=== PATIENT | male | born 2000 | race American Indian/Alaskan Native ===

== ENCOUNTER 2021-08-29 19:21 | Emergency (ER) | payer SELFPAY ==
--- NOTE | 2021-08-29 20:00 | Emergency Department Report ---
HPI - General Chief Complaint: Nausea/Vomiting/Diarrhea Time Seen by Provider: 08/29/21 19:46 - HPI HPI: Room 22 The patient is a 21-year-old male present with chief complaint of abdominal pain nausea vomiting. Patient states last night he developed some nausea without vomiting and felt cold even though he was under the covers. The patient states this morning when he awakened he has had intractable nausea vomiting in addition to right-sided abdominal pain. Patient states his abdominal pain has been constant. Patient states he continued to vomit all day including water and Gatorade. Patient admits to an episode of diarrhea. Patient states his last meal prior to symptoms last night consisted of sloppy [employer]. The patient states his girlfriend also ate sloppy Ricki's but was asymptomatic. Patient admits to anorexia stating the food does not taste right so his last meal occurred 21: 00 last night. Patient currently gives his abdominal pain a score 4-5/10 ED Past Medical Hx - Past Medical History Previous Medical History?: No - Surgical History Past Surgical History?: No - Family History Family history: no significant - Social History Smoking Status: Never Smoker Substance Use Type: Marijuana - Medications Home Medications: Home Medications Medication Instructions Recorded Confirmed Last Taken Type Ciprofloxacin HCl 500 mg PO BID #14 08/29/21 Unknown Rx HYDROcodone/APAP 5-325 [Tyner 1 - 2 each PO Q6HR PRN #10 tablet 08/29/21 Unknown Rx 5/325] Promethazine [Phenergan] 25 mg PO Q6HR PRN #20 tab 08/29/21 Unknown Rx Promethazine [Phenergan] 25 mg [place] Q6HR PRN #5 supp.rect 08/29/21 Unknown Rx ED Review of Systems ROS: Stated complaint: NAUSEA/VOMITING/HYPOGLYCEMIA Other details as noted in HPI Constitutional: no symptoms reported Eyes: denies: eye pain ENT: denies: throat pain Respiratory: no symptoms reported Cardiovascular: denies: chest pain Endocrine: no symptoms reported Gastrointestinal: abdominal pain, nausea, vomiting, diarrhea Genitourinary: denies: dysuria Musculoskeletal: denies: back pain Neurological: denies: headache Physical Exam - Physical Exam Vital Signs: Vital Signs 08/29/21 08/29/21 20:59 22:07 Temperature 98.7 F Pulse Rate 66 77 Respiratory 15 15 Rate Blood Pressure 97/77 115/79 [Left] O2 Sat by Pulse 100 99 Oximetry Physical Exam: GENERAL: The patient is well-developed well-nourished male lying on stretcher appearing to be in moderate discomfort. [] HEENT: Normocephalic. Atraumatic. Extraocular motions are intact. Patient has moist mucous membranes. NECK: Supple. Trachea midline CHEST/LUNGS: Clear to auscultation. There is no respiratory distress noted. HEART/CARDIOVASCULAR: Regular. There is no tachycardia. There is no gallop rub or murmur. ABDOMEN: Abdomen is soft, with tenderness to palpation greatest in the right lower quadrant and some tenderness in the suprapubic region. The remainder of the abdomen is soft and nontender to palpation. There is no guarding. Patient has normal bowel sounds. There is no abdominal distention. Positive obturator sign. Negative heel percussion SKIN: There is no rash. There is no edema. There is no diaphoresis. NEURO: The patient is awake, alert, and oriented. The patient is cooperative. The patient has no focal neurologic deficits. The patient has normal speech. GCS 15 MUSCULOSKELETAL: There is no evidence of acute injury. ED Course - Consultations Consultation #1: 08/29/21 21:54 GI paged 08/29/21 22:09 Case discussed with assistant men's lacrosse coach Dr. Jose Farooq- states the patient tolerates p.o. challenge may discharge home with ciprofloxacin 500 mg twice daily x7 days and Flagyl 500 mg 3 times daily x7 days ED Medical Decision Making - Lab Data Result diagrams: 08/29/21 20:17 08/29/21 20:17 Laboratory Tests 08/29/21 08/29/21 20:17 20:17 WBC 8.4 RBC 5.01 Hgb 16.0 H Hct 47.4 H MCV 95 H MCH 32 MCHC 34 RDW 12.9 L Plt Count 172 Lymph % (Auto) 5.4 L Ralls % (Auto) 11.8 H Eos % (Auto) 0.2 Baso % (Auto) 0.1 Lymph # (Auto) 0.5 L Ralls # (Auto) 1.0 H Eos # (Auto) 0.0 Baso # (Auto) 0.0 Seg Neutrophils % 82.5 H Seg Neutrophils # 6.9 Sodium 140 Potassium 3.5 L Chloride 103.0 Carbon Dioxide 23 Anion Gap 18 BUN 10 Creatinine 0.9 Estimated GFR > 60 BUN/Creatinine Ratio 11 Glucose 88 Calcium 9.6 Total Bilirubin 0.70 AST 21 ALT 12 Alkaline Phosphatase 88 Total Protein 7.5 Albumin 4.6 Albumin/Globulin Ratio 1.6 Lipase 10 L - Radiology Data Radiology results: report reviewed (CT abdomen pelvis), image reviewed (CT abdomen pelvis) [facility] [address] [place] [address] Cat Scan Report Signed Patient: CHRISTOPHE COOK MR#: [id number] [birth year] : 2000 Acct:[id number] Age/Sex: 21 / M ADM Date: 08/29/21 Loc: ED Attending Dr: Ordering Physician: DIEGO LORENZO MD Date of Service: 08/29/21 Procedure(s): CT abdomen pelvis w con Accession Number(s): [id number] cc: DIEGO LORENZO MD CT ABDOMEN AND PELVIS WITH CONTRAST INDICATION / CLINICAL INFORMATION: Right abdominal pain, anorexia, nausea and vomiting. TECHNIQUE: Axial CT images were obtained through the abdomen and pelvis after IV contrast. All CT scans at this location are performed using CT dose reduction for ALARA by means of automated exposure control. COMPARISON: None available. FINDINGS: LOWER CHEST: No significant abnormality. LIVER: No significant abnormality. GALLBLADDER: No significant abnormality. BILE DUCTS: No significant abnormality. PANCREAS: No significant abnormality. SPLEEN: No significant abnormality. ADRENALS: No significant abnormality. RIGHT KIDNEY/URETER: No significant abnormality. LEFT KIDNEY/URETER: No significant abnormality. STOMACH/SMALL BOWEL: Mild thickening and hyperemia is seen along the terminal ileum. No other significant abnormality. COLON: No significant abnormality. APPENDIX: No significant abnormality. PERITONEUM: No free fluid. No free air. No fluid collection. LYMPH NODES: No significant adenopathy. VASCULATURE: No significant abnormality. URINARY BLADDER: No significant abnormality. REPRODUCTIVE ORGANS: No significant abnormality. ADDITIONAL FINDINGS: None. BONES: No significant abnormality IMPRESSION: 1. Suspected uncomplicated acute ileitis, which may be infectious or inflammatory. 2. No other acute findings. Signer Name: Lito Melchor MD Signed: 08/29/2021 9:40 PM Workstation Name: [id number] Transcribed By: LORNA Dictated By: Lito Melchor MD Electronically Authenticated By: Lito Melchor MD Signed Date/Time: 08/29/212139 DD/ 35 TD/TT: - Differential Diagnosis Appendicitis, gastroenteritis, partial small bowel obstruction, Critical care attestation.: If time is entered above; I have spent that time in minutes in the direct care of this critically ill patient, excluding procedure time. ED Disposition Clinical Impression: Acute abdominal pain, Ileitis Disposition: HOME / SELF CARE / HOMELESS Is pt being admited?: No Does the pt Need Aspirin: No Condition: Stable Additional Instructions: Return to the emergency department should you develop worsening symptoms, inability to tolerate food or liquids, high fever or any other concerns Prescriptions: Ciprofloxacin HCl 500 mg PO BID #14 HYDROcodone/APAP 5-325 [Tyner 5/325] 1 - 2 each PO Q6HR PRN #10 tablet PRN Reason: Pain Promethazine [Phenergan] 25 mg PO Q6HR PRN #20 tab PRN Reason: Nausea Promethazine [Phenergan] 25 mg [place] Q6HR PRN #5 supp.rect PRN Reason: Vomiting Referrals: PRIMARY CAREMD [Primary Care Provider] - 3-5 Days ABRAHAN FAROOQ MD [Staff Physician] - 3-5 Days (Dr. Farooq is a assistant men's lacrosse coach. Please follow-up with him for further evaluation)
[2021-08-29] MEDS: SODIUM CHLORIDE 0.9% 1000 ML 1,000 ML IV ONE (20:10)
[2021-08-29] MEDS: ONDANSETRON 4 MG/2 ML INJ IV ONE (20:11)
[2021-08-29] MEDS: fentaNYL 100 MCG/2 ML INJ IV ONE (20:11)
[2021-08-29 20:27] LABS: Basophils % (Auto) 0.1 % (0.0-1.8); Eosinophils % (Auto) 0.2 % (0.0-4.3); Hematocrit 47.4 % (35.5-45.6); Lymphocytes # (Auto) 0.5 K/mm3 (1.2-5.4); Lymphocytes % (Auto) 5.4 % (13.4-35.0); Mean Corpuscular HGB Conc 34 % (32-34); Mean Corpuscular Volume 95 fl (84-94); Monocytes % (Auto) 11.8 % (0.0-7.3); Platelet Count 172 K/mm3 (140-440); Red Blood Count 5.01 M/mm3 (3.65-5.03); Red Cell Distribution Width 12.9 % (13.2-15.2)
[2021-08-29 20:50] LABS: Alanine Aminotransferase 12 units/L (7-56); Albumin 4.6 g/dL (3.9-5); BUN/Creatinine Ratio 11; Blood Urea Nitrogen 10 mg/dL (9-20); Calcium 9.6 mg/dL (8.4-10.2); Hemolysis Index 10
--- NOTE | 2021-08-29 21:44 | Cat Scan Report ---
CT ABDOMEN AND PELVIS WITH CONTRAST INDICATION / CLINICAL INFORMATION: Right abdominal pain, anorexia, nausea and vomiting. TECHNIQUE: Axial CT images were obtained through the abdomen and pelvis after IV contrast. All CT scans at this location are performed using CT dose reduction for ALARA by means of automated exposure control. COMPARISON: None available. FINDINGS: LOWER CHEST: No significant abnormality. LIVER: No significant abnormality. GALLBLADDER: No significant abnormality. BILE DUCTS: No significant abnormality. PANCREAS: No significant abnormality. SPLEEN: No significant abnormality. ADRENALS: No significant abnormality. RIGHT KIDNEY/URETER: No significant abnormality. LEFT KIDNEY/URETER: No significant abnormality. STOMACH/SMALL BOWEL: Mild thickening and hyperemia is seen along the terminal ileum. No other signifi cant abnormality. COLON: No significant abnormality. APPENDIX: No significant abnormality. PERITONEUM: No free fluid. No free air. No fluid collection. LYMPH NODES: No significant adenopathy. VASCULATURE: No significant abnormality. URINARY BLADDER: No significant abnormality. REPRODUCTIVE ORGANS: No significant abnormality. ADDITIONAL FINDINGS: None. BONES: No significant abnormality IMPRESSION: 1. Suspected uncomplicated acute ileitis, which may be infectious or inflammatory. 2. No other acute findings. Signer Name: Lito Melchor MD Signed: 08/29/2021 9:40 PM Workstation Name: [id number]
[2021-08-29 22:44] VITALS: BP 122/72
== END 2021-08-29 22:43 | disposition home or self-care (01) ==
LOC: ED 19:21
DX: R10.9 Unspecified abdominal pain (principal); K52.9 Noninfective gastroenteritis and colitis, unspecified; F12.90 Cannabis use, unspecified, uncomplicated
CPT/HCPCS: 36415; 74177; 80053; 83690; 85025; 96361; 96374; 96375; 99284; J2405; J3010; J7030; Q9967; Q0162